=== PATIENT | female | born 2000 | race Caucasian/White ===

== ENCOUNTER 2021-02-04 22:38 | Emergency (ER) | payer OTHER, BC ==
[~2021-02-04] VITALS: Ht 167.6 cm; Wt 108.9 kg
[2021-02-04 22:50] VITALS: BP_SYST 152
[2021-02-04] MEDS ORDERED: ASPIRIN 81 MG TAB.CHEW PO ONE (23:15)
[2021-02-05 00:06] LABS: BASOPHILS % (AUTO) 0.2 % (0.0-2.0); EOSINOPHILS % (AUTO) 0.1 % (0.0-4.0); HEMATOCRIT 42.1 % (36-48); HEMOGLOBIN 13.7 g/dL (12.0-16.0); LYMPHOCYTES # (AUTO) 1.7 K/uL (1.0-5.5); LYMPHOCYTES % (AUTO) 9.8 % (20.5-51.5); MEAN CORPUSCULAR HEMOGLOBIN 27 pg (27-31); MEAN CORPUSCULAR HGB CONC 33 % (32-36); MEAN CORPUSCULAR VOLUME 82 fL (79.0-98.0); MONOCYTES # (AUTO) 0.9 K/uL (0.0-1.0); MONOCYTES % (AUTO) 5.3 % (1.7-9.3); NEUTROPHILS # (AUTO) 14.4 K/uL (1.8-7.7); NEUTROPHILS % (AUTO) 84.6 % (40.0-70.0); PLATELET COUNT (AUTO) 295 K/uL (130-430); RED BLOOD CELL COUNT(AUTO) 5.14 MIL/uL (4.2-6.2); RED CELL DISTRIBUTION WIDTH 13.7 % (9.0-15.0)
[2021-02-05] MEDS ORDERED: ONDANSETRON HCL 4 MG/2 ML VIAL IVP ONE (00:15)
[2021-02-05] MEDS ORDERED: MORPHINE 4 MG INJ. 4 MG/ML VIAL IVP ONE ×2 (00:15→03:00)
[2021-02-05] MEDS ORDERED: KETOROLAC TROMETHAMINE 60 MG/2 ML VIAL IM ONE (00:15)
[2021-02-05] MEDS ORDERED: KETOROLAC TROMETHAMINE 30 MG VIAL IVP ONE (00:15)
[2021-02-05] MEDS ORDERED: MORPHINE 4 MG INJ. 4 MG/ML VIAL IM ONE (00:15)
[2021-02-05 00:47] LABS: CALCIUM 8.9 mg/dL (8.4-11.0); CREATININE 0.89 mg/dL (0.55-1.30); POTASSIUM 3.4 mmol/L (3.5-5.1)
[2021-02-05 00:49] LABS: TOTAL BILIRUBIN 0.2 mg/dL (0.0-1.0)
[2021-02-05 00:50] LABS: ALBUMIN 4.2 g/dL (3.4-4.8)
[2021-02-05] MEDS ORDERED: IOHEXOL 350 mgI/mL, 150 ML INFUS..BTL IV ONE (01:03)
[2021-02-05] MEDS ORDERED: NAPR-1172 PO (03:57)
[2021-02-05] MEDS ORDERED: HYDR-3917 PO (03:57)
[2021-02-05] MEDS ORDERED: CYCL10TA24 PO (03:57)
[2021-02-05 04:06] VITALS: BP_SYST 117
== END 2021-02-05 04:07 | disposition home or self-care (01) ==
LOC: SED 22:38
DX: S83.92XA Sprain of unspecified site of left knee, initial encounter (principal); S63.91XA Sprain of unspecified part of right wrist and hand, initial encounter; S20.212A Contusion of left front wall of thorax, initial encounter; Z88.2 Allergy status to sulfonamides; V49.49XA Driver injured in collision with other motor vehicles in traffic accident, initial encounter; Y93.89 Activity, other specified; Y92.89 Other specified places as the place of occurrence of the external cause; Y99.8 Other external cause status
CPT/HCPCS: 36415; 70498; 71045; 73130; 73564; 76376; 80053; 83880; 84484; 84702; 85025; 85379; 93005; 96374; 96375; 96376; 99285; J1885; J2270; J2405; Q9967